=== PATIENT | female | born 1945 | race African-American/Black ===

== ENCOUNTER 2016-10-24 06:49 | Inpatient (IN) | payer OTHER ==
[~2016-10-24] VITALS: Ht 162.6 cm; Wt 81.2 kg
--- NOTE | ~2016-10-24 | H ---
[facility] [address] [place] [address] HISTORY AND PHYSICAL Name: BEN ELLIOTT Room #: 412-P ADM IN M.R.#: [id number] Admission: 10/24/16 Attend Phys: Trisha Salcedo MD Discharge: Date of : 49 Report #: [id number] THIS REPORT FOR: //name// CC: Trang Salcedo MD DATE OF SERVICE: 10/24/2016 CHIEF COMPLAINT: Nausea and vomiting. HISTORY OF PRESENT ILLNESS: The patient is a 71-year-old female with history of chronic back pain, narcotic dependent, who ran out of her MS Contin yesterday. The patient takes 60 mg of MS Contin t.i.d. Shortly after she did not take the medication, she started having nausea and vomiting that got progressively worse. She presented to the emergency room with these symptoms. In the emergency room, the patient's evaluation was unremarkable, including normal physical examination and normal lipase. The patient was given IV morphine, but her symptoms did not improve significantly. She denies any sick contacts. Her symptoms are assumed to be related to narcotic withdrawal. PAST MEDICAL HISTORY: 1. Chronic back pain, narcotic dependent. 2. Dyslipidemia. 3. Depression and anxiety. 4. Hypertension. 5. History of paroxysmal atrial fibrillation and SVT. Not on anticoagulation. 6. Reported diabetes mellitus type 2. 7. History of Paget's disease. 8. GERD. CURRENT MEDICATIONS: Reviewed and documented in the patient's chart. FAMILY HISTORY: Reviewed and not pertinent to the patient's current condition. SOCIAL HISTORY: The patient smokes cigarettes, about 10 a day. She does not drink alcohol. REVIEW OF SYSTEMS: As above in the HPI section, all others negative. PHYSICAL EXAMINATION: GENERAL: In general, the patient is healthy looking elderly female, who looks uncomfortable due to ongoing symptoms. VITAL SIGNS: Blood pressure is 201/87, heart rate is 68, respirations are 18 and temperature is 98.7. HEENT EXAMINATION: Pupils are equal. Eye movements are normal. Sclerae are [facility] [address] [place] [address] HISTORY AND PHYSICAL Name: BEN ELLIOTT Room #: 412-P [facility] IN ..#: [id number] Admission: 10/24/16 Attend Phys: Trisha Salcedo MD Discharge: Date of : 49 Report #: [id number] anicteric. Oral mucosa is moist. Ear examination is deferred. NECK: Supple. The patient has no thyromegaly. RESPIRATORY EXAMINATION: The patient has normal respiratory sounds. Chest is symmetrical with breathing. CARDIOVASCULAR EXAMINATION: The patient has regular rhythm and rate. She has no murmurs, gallops or rubs. GASTROINTESTINAL EXAMINATION: Abdomen is soft, nondistended and nontender. Bowel sounds are present. She has no hepatomegaly or splenomegaly. MUSCULOSKELETAL EXAMINATION: There is no edema, cyanosis or clubbing. The patient has no visible joint deformities. Range of motion is normal. NEUROLOGICAL EXAMINATION: The patient is alert and oriented times 3. Her examination is nonfocal. LABORATORY DATA: Metabolic profile is essentially normal. Liver function tests are normal. Troponin is undetectable. Digoxin level is undetectable. Lipase is normal. CBC with differential show hemoglobin of 15.8 and hematocrit of 47.9. Urinalysis is pending. ASSESSMENT AND PLAN: 1. Intractable nausea and vomiting, presumed secondary to narcotic withdrawal. Morphine is resumed, MS Contin 60 mg t.i.d. Lipase is normal. Other etiologies are certainly possible. We will proceed further evaluation with a CT scan of the abdomen. The patient also has history of gastroesophageal reflux disease. PPI is initiated. We will ask GI team to evaluate the patient. Consultation is very much appreciated. 2. Hypertension, accelerated. Blood pressure is high. Lisinopril will be resumed. Hydralazine will be used as needed. 3. Anxiety and depression. Stable. No suicidal ideation. Sertraline and bupropion will be continued unchanged. 4. Tobacco abuse and dependence. Advised to quit. 5. Deep venous thrombosis prophylaxis. SubQ Lovenox. By: 1306 [id number] Trisha Salcedo MD /nt
--- NOTE | ~2016-10-24 | P ---
[facility] [address] [place] [address] PROCEDURE REPORT Name: BEN ELLIOTT Room #: 412-P [facility] IN M.R.#: [id number] Admission: 10/24/16 Attend Phys: Trisha Salcedo MD Discharge: Date of : 49 Report #: [id number] THIS REPORT FOR: //name// CC: JUAN Salcedo MD DATE OF SERVICE: 10/26/2016 TYPE OF REPORT: EGD with biopsy. PATIENT OF: Dr. Salcedo. DESCRIPTION OF PROCEDURE: Informed consent for this procedure was obtained prior to the administration of any medication. The risks of the procedure which include bleeding, perforation, infection, complications of sedation and the possibility I could miss something have been explained to the patient and she has indicated her consent by signing. Propofol was slowly titrated before and during this procedure for patient comfort by the anesthesia service. The [employer] upper videoscope was introduced through the upper esophageal sphincter and advanced under direct visualization to the descending duodenum. Findings are noted on withdrawal of the scope. The duodenal mucosa is erythematous throughout. Biopsies were obtained from the second portion times 2 to evaluate for possible celiac sprue. In the duodenal bulb, there is erythema and a 3 mm sessile polyp that was removed in 2 pieces with a biopsy forceps and sent to pathology lab. Good hemostasis was noted after that polypectomy. Pylorus, mild erythema is noted. Antrum, erythematous mucosa. Biopsies are obtained times 4 from the antrum for histopathology to exclude autoimmune gastritis and H. pylori infection. Body, erythematous mucosa. Cardia and fundus, patchy erythema of the cardia and fundus is noted. Biopsies are obtained times 4 from the body, cardia and fundus of the stomach for histopathology to evaluate for possible autoimmune gastritis. Good hemostasis was noted after all the gastric biopsies as well. The scope was withdrawn to the esophagus. The Z line is appropriately located at 40 cm and appears intact and is normal. The esophageal mucosa appears normal throughout its entirety. The scope was withdrawn. The patient went to the recovery area in stable condition. She tolerated the procedure well. IMPRESSION: Diffuse mild to moderate gastroduodenitis, biopsies taken as above. Recommendations are to await the biopsy results. We will continue the proton pump inhibitors, we will start her on a Carafate slurry 1 gram p.o. a.c. and at bedtime. [address] [address] PROCEDURE REPORT Name: BEN ELLIOTT Room #: 412-P [facility] IN .R.#: [id number] Admission: 10/24/16 Attend Phys: Trisha Salcedo MD Discharge: Date of : 49 Report #: [id number] Thank you very much once again for allowing me to participate in her care, Dr. Salcedo. <ELECTRONICALLY SIGNED> By: Nicol Flores DO 10/27/16 1000 1430 0143 Nicol Flores DO /kitty
--- NOTE | ~2016-10-24 | S ---
[facility] [address] [place] [address] SURGICAL PATH RPT PROCEDURE Name: ELAYNE ELLIOTT Room #: 412-P ADM IN M.R.#: [id number] Admission: 10/24/16 Date of : 49 Discharge: Report #: [id number] Path Case #: [id number] PATHOLOGY REPORT COLLECTION DATE: 10/26/2016 RECEIVED DATE: 10/26/2016 SUBMITTING PHYS: Dr. Nicol Flores OTHER PHYS: Dr. Trisha Osman SPECIMEN(S) RECEIVED: A.Duodenum B.Duodenal polyp C.Distal gastric bx D.Proximal gastric bx * * * * * * * * * * * * FINAL DIAGNOSIS: A. Small bowel, duodenum, endoscopic biopsy: - No significant diagnostic abnormalities present. B. Polyp, duodenal polyp, endoscopic biopsy: - Polypoid mucosa with fundic-type metaplasia and mild chronic inflammation. - Negative for dysplasia or malignancy. C. Gastric mucosa, distal gastric, endoscopic biopsy: - Helicobacter pylori-induced moderate active gastritis. - Negative for intestinal metaplasia, atrophy, or dysplasia. D. Gastric mucosa, proximal gastric, endoscopic biopsy: - Helicobacter pylori-induced moderate active gastritis. - Negative for intestinal metaplasia, atrophy, or dysplasia. COMMENT: Helicobacter pylori immunohistochemical stain performed on block C1-positive for moderate number of organisms. Helicobacter pylori immunohistochemical stain performed on block D1-positive for moderate number of organisms. (IUV:mgr; d/t: 10/27/16) PATHOLOGIST: Bell West M.D. REPORT ELECTRONICALLY SIGNED BY: Bell West M.D. DATE/TIME: 10/27/2016 13:12 * * * * * * * * * * * * GROSS PATHOLOGY: A. Received in formalin labeled "White, Elayne and duodenum bx," are 2 segments of antonio soft tissue measuring 0.7 x 0.2 x 0.[address] [address] SURGICAL PATH RPT PROCEDURE Name: ELAYNE ELLIOTT C Room #: 412-P [facility] IN [facility]#: [id number] Admission: 10/24/16 Date of : 49 Discharge: Report #: [id number] Path Case #: [id number] aggregate dimensions and measuring 0.3 and 0.4 cm in maximum dimension. The specimen is submitted entirely in cassette A1. B. Received in formalin labeled "White, Elayne and duodenal polyp," is a segment of antonio soft tissue measuring 0.4 cm in maximum dimension. The specimen is submitted entirely in cassette B1. C. Received in formalin labeled "White, Elayne and distal gastric bx," are 4 segments of antonio soft tissue measuring 1.8 x 0.4 x 0.2 cm in aggregate dimensions and ranging from 0.3 to 0.6 cm in maximum dimension. The specimen is submitted entirely in cassette C1. D. Received in formalin labeled "White, Elayne and proximal gastric bx," are 5 segments of antonio soft tissue measuring 2.0 x 0.2 x 0.2 cm in aggregate dimensions and ranging from 0.2 to 0.5 cm in maximum dimension. The specimen is submitted entirely in cassette D1. (TTL; 10/26/2016) CLINICAL HISTORY: Abdominal pain INITIAL CPT CODE(S): A; 79191 B; 83435 C; 01656, 11949 D; 39886, 94109 Professional services performed by [facility] at [place] [address] [address], [place] [address] Technical services performed by [facility] at [address] [place] [address], [facility] [place] [address] [place] [address]. [facility] [address] [place] [address] PHONE: [phone] DIRECTOR: Amandeep Echavarria M.D. * * * END OF REPORT * * *
--- NOTE | ~2016-10-24 | EKG ---
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
[~2016-10-24 06:49] MED LIST: CIPROFLOXACIN500 M3 PO; COLACE100 MG PO; FLAGYL500 MG PO; GLUCOPHAGE500 MG PO; LANOXIN 0.250.25 M1 PO; LANSOPRAZOLE30 MG PO; LISINOPRIL20 MG PO; MEDROLDOSEPACK PO; MELADOX3 MG PO; MORPHINE SULFAT15 M3 PO; MORPHINE SULFAT15 M4 PO; MS CONTIN 30 MG30 M1 PO; MS CONTIN30 MG PO; NABUMETONE 750750 M1 PO; NICOTINE TRANSD14 M1 TD; OPANA ER40 MG PO; OPANA10 MG PO; PERCOCET 5-3251 EACH PO; PRAVACHOL80 MG PO; PROMETHAZINE12.5 M1 PO; ROXICODONE5 MG PO; SKELAXIN 800 M800 M1 PO; STOOL SOFTENER50 MG PO; VALIUM5 MG PO; VITAMIN D 5050000 I1 PO; WELLBUTRIN SR150 MG PO; ZANAFLEX6 MG PO; ZANTAC 150MG T150 M1 PO; ZESTRIL2.5 MG PO; ZOFRAN 4 MG ORAL4 M1 DIS; ZOLOFT 50 MG TA50 M1 PO; ZOLOFT100 MG PO
[2016-10-24 06:52] VITALS: BP 182/75
[2016-10-24 07:40] LABS: ABSOLUTE NEUTROPHILS 8.9 thou/uL (1.4-8.2); BASOPHILS 0.6 % (0.0-2.0); EOSINOPHILS 0.2 % (0.0-3.0); HEMATOCRIT 47.9 % (37.0-47.0); HEMOGLOBIN 15.8 gm/dL (12.0-15.0); LYMPHOCYTES 11.3 % (24.0-44.0); MCH 26.9 pg (26.0-34.0); MCV 81.5 fL (80.0-100.0); MONOCYTES 3.4 % (1.0-8.0); PLATELET COUNT 177 thou/uL (150-400); POLYS 84.5 % (36.0-66.0); RBC 5.87 mil/uL (4.20-5.00); RDW 15.1 % (10.5-14.5); WBC 10.5 thou/uL (4.0-11.0)
[2016-10-24 07:41] LABS: MANUAL DIFF NO
[2016-10-24 07:52] LABS: ANION GAP 15 mmol/L (7-16); BUN 10 mg/dL (7-18); CALCIUM 9.5 mg/dL (8.5-10.1); CHLORIDE 103 mmol/L (98-107); CO2 21 mmol/L (21-32); GLUCOSE 177 mg/dL (70-99); POTASSIUM 4.1 mmol/L (3.5-5.1); SODIUM 139 mmol/L (136-145)
[2016-10-24] MEDS ORDERED: ASPIR 8181 MG PO (07:53)
[2016-10-24] MEDS ORDERED: ATORVASTATIN CA40 MG PO (07:54)
[2016-10-24] MEDS ORDERED: LISINOPRIL2.5 M1 PO (07:56)
[2016-10-24] MEDS ORDERED: MS CONTIN 60 MG60 M1 PO (07:57)
[2016-10-24] MEDS ORDERED: NITROGLYCERIN0.4 MG SUBLING (07:58)
[2016-10-24 07:59] LABS: ALBUMIN 4.1 g/dL (3.4-5.0); ALKALINE PHOSPHATASE 95 U/L (46-116); SGOT 15 U/L (15-37); SGPT 22 U/L (30-65); TOTAL BILIRUBIN 0.4 mg/dL (<0.1-1.0); TOTAL PROTEIN 7.9 g/dL (6.4-8.2); TROPONIN-I < 0.04 ng/mL (<0.04-0.07)
[2016-10-24 10:48] VITALS: BP 201/94
[2016-10-24 11:22] VITALS: BP 201/87
[2016-10-24 16:28] VITALS: BP 192/106
[2016-10-24 18:55] VITALS: BP 157/91
[2016-10-25 04:20] VITALS: BP 123/84
[2016-10-25 07:28] LABS: ABSOLUTE NEUTROPHILS 12.2 thou/uL (1.4-8.2); BASOPHILS 0.5 % (0.0-2.0); EOSINOPHILS 0.2 % (0.0-3.0); HEMATOCRIT 53.6 % (37.0-47.0); HEMOGLOBIN 17.3 gm/dL (12.0-15.0); MCH 26.4 pg (26.0-34.0); MCHC 32.3 g/dL (28.0-37.0); MCV 81.8 fL (80.0-100.0); MONOCYTES 10.9 % (1.0-8.0); PLATELET COUNT 205 thou/uL (150-400); POLYS 70.4 % (36.0-66.0); RBC 6.55 mil/uL (4.20-5.00); RDW 15.2 % (10.5-14.5); WBC 17.4 thou/uL (4.0-11.0)
[2016-10-25 07:29] LABS: MANUAL DIFF NO
[2016-10-25 07:37] LABS: CALCIUM 8.6 mg/dL (8.5-10.1); CREATININE 1.2 mg/dL (0.6-1.3); POTASSIUM 3.8 mmol/L (3.5-5.1)
[2016-10-25 08:00] VITALS: BP 88/54
[2016-10-25 12:46] LABS: URINE BILIRUBIN 1+ (Negative); URINE BLOOD 1+ (Negative); URINE COLOR YELLOW; URINE GLUCOSE-RANDOM* NEGATIVE (Negative); URINE KETONES 1+ (Negative); URINE LEUKOCYTES-REFLEX NEGATIVE (Negative); URINE PROTEIN (DIPSTICK) TRACE (Negative); URINE SPECIFIC GRAVITY 1.025 (1.003-1.035); URINE UROBILINOGEN 0.2 E.U./dl (0.2-1.0)
[2016-10-25 12:52] LABS: SQUAMOUS 0-3 Few /LPF (0-3)
[2016-10-25 12:53] LABS: CASTS None Seen /LPF (None Seen); CRYSTALS None Seen /LPF (None Seen); URINE RBC 0-2 Rare /HPF (0-2); URINE WBC-REFLEX 0-5 Rare /HPF (0-5)
[2016-10-25 20:20] VITALS: BP 121/97
[2016-10-26 04:57] VITALS: BP 94/55
[2016-10-26 07:11] LABS: RDW 15.3 % (10.5-14.5)
[2016-10-26 07:13] LABS: HEMATOCRIT 43.2 % (37.0-47.0); MCH 26.6 pg (26.0-34.0); MCHC 32.4 g/dL (28.0-37.0); RBC 5.27 mil/uL (4.20-5.00); WBC 11.2 thou/uL (4.0-11.0)
[2016-10-26 07:20] LABS: MANUAL DIFF YES
[2016-10-26 08:25] VITALS: BP 91/46
[2016-10-26 08:34] LABS: ABSOLUTE NEUTROPHILS 5.9 thou/uL (1.4-8.2); ANISOCYTOSIS 1+; ATYPICAL LYMPHS 2 %; PLATELET COUNT 147 thou/uL (150-400); TOTAL CELL COUNT 100
[2016-10-26 08:35] LABS: LARGE PLATELETS OCCASIONAL
[2016-10-26 15:12] VITALS: BP 95/58
[2016-10-26 20:00] VITALS: BP 90/40
[2016-10-27 04:00] VITALS: BP 94/61
[2016-10-27 04:12] LABS: HEMATOCRIT 40.6 % (37.0-47.0); HEMOGLOBIN 13.1 gm/dL (12.0-15.0); MCH 26.5 pg (26.0-34.0); MCHC 32.3 g/dL (28.0-37.0); MCV 81.9 fL (80.0-100.0); RBC 4.96 mil/uL (4.20-5.00); RDW 14.9 % (10.5-14.5); WBC 9.5 thou/uL (4.0-11.0)
[2016-10-27 04:23] LABS: POTASSIUM 3.8 mmol/L (3.5-5.1)
[2016-10-27 08:32] VITALS: BP 112/70
[2016-10-27] MEDS ORDERED: MORPHINE SULFAT15 M3 PO (10:57)
[2016-10-27] MEDS ORDERED: CARAFATE 11 GM/10 M1 PO (10:58)
[2016-10-27] MEDS ORDERED: PROTONIX40 M1 PO (10:58)
[2016-10-27 15:48] VITALS: BP 112/70
== END 2016-10-27 16:16 | disposition home or self-care (01) | DRG 897 ==
LOC: ER 06:49 → 4N 09:20 → EROBS 09:20 → 4N 10:57
PROVIDERS: Emergency Medicine; Hospitalist; Internal Medicine Endocrinology, Diabetes & Metabolism
PROC: 0DB68ZX Excision of Stomach, Via Natural or Artificial Opening Endoscopic, Diagnostic (ICD-10-PCS; principal; 2016-10-26)
PROC: 0DB98ZX Excision of Duodenum, Via Natural or Artificial Opening Endoscopic, Diagnostic (ICD-10-PCS; principal; 2016-10-26)
DX: F15.93 Other stimulant use, unspecified with withdrawal (principal); F11.23 Opioid dependence with withdrawal; A08.4 Viral intestinal infection, unspecified; M54.9 Dorsalgia, unspecified; E11.9 Type 2 diabetes mellitus without complications; E78.5 Hyperlipidemia, unspecified; F32.9 Major depressive disorder, single episode, unspecified; F41.9 Anxiety disorder, unspecified; I10 Essential (primary) hypertension; K59.00 Constipation, unspecified; I48.0 Paroxysmal atrial fibrillation; G89.4 Chronic pain syndrome; I95.9 Hypotension, unspecified; K21.9 Gastro-esophageal reflux disease without esophagitis; F17.210 Nicotine dependence, cigarettes, uncomplicated; Z79.82 Long term (current) use of aspirin; Z79.899 Other long term (current) drug therapy; Z90.12 Acquired absence of left breast and nipple; Z98.49 Cataract extraction status, unspecified eye; Z90.710 Acquired absence of both cervix and uterus; Z88.8 Allergy status to other drugs, medicaments and biological substances; Z88.6 Allergy status to analgesic agent
CPT/HCPCS: 10091; 62110; 62900; 70005